=== PATIENT | male | born 1980 | race Caucasian/White ===

== ENCOUNTER 2023-08-30 05:33 | Day surgery (SDC) | payer BC, OTHER ==
[~2023-08-30 05:33] MED LIST: ACETAMINOPHEN TAB 500 MG TAB PO PRN; HEPARIN SODIUM,PORCINE 5,000 UNIT/ML 1 ML VIAL SQ PRN
[2023-08-30] MEDS ORDERED: LIDOCAINE 1% (10MG/ML) FOR IV START INTRADERMA PRN (05:45)
[2023-08-30] MEDS ORDERED: DEXAMETHASONE SOD PHOSPHATE 4 MG/ML 1 ML VIAL IV ONE (05:45)
[2023-08-30] MEDS ORDERED: LACTATED RINGERS 1,000 ML IV SCH (05:45)
[2023-08-30] MEDS ORDERED: ONDANSETRON 4 MG/2 ML VIAL IVP ONE ×2 (05:45→06:50)
[2023-08-30] MEDS ORDERED: DEXAMETHASONE SOD PHOSPHATE 4 MG/ML 1 ML VIAL IVP ONE (06:50)
[2023-08-30] MEDS ORDERED: LACTATED RINGERS 1,000 ML IV ONE ×2 (06:50→08:24)
[2023-08-30] MEDS ORDERED: HYDROmorphone 0.5 MG/0.5 ML SYRINGE IVP PRN (07:00)
[2023-08-30] MEDS ORDERED: MIDAZOLAM 2 MG/2 ML VIAL IV PRN (07:00)
[2023-08-30] MEDS ORDERED: MIDAZOLAM 2 MG/2 ML VIAL IVP ONE ×2 (07:16)
[2023-08-30] MEDS ORDERED: BUPIVACAINE (PF) 0.25% 30 ML VIAL SQ ONE ×2 (07:31→07:58)
[2023-08-30] MEDS ORDERED: fentaNYL (PF) 50 MCG/ML 2 ML AMP ONE (07:33)
[2023-08-30] MEDS ORDERED: ROPIVACAINE 5 MG/ML 30 ML VIAL ONE (07:33)
[2023-08-30] MEDS ORDERED: LIDOCAINE 1% INJ 10MG/ML (20 ML MDV) ONE (07:33)
[2023-08-30] MEDS ORDERED: HYDROmorphone (PF) 1 MG/ML ONE (07:33)
[2023-08-30] MEDS ORDERED: ROCURONIUM 10 MG/ML (5 ML VIAL) IV ONE (07:33)
[2023-08-30] MEDS ORDERED: KETOROLAC 15 MG/ML 1 ML VIAL ONE (07:33)
[2023-08-30] MEDS ORDERED: KETAMINE HCL IN 0.9 % NACL 50 MG/5 ML SYRINGE ONE (07:33)
[2023-08-30] MEDS ORDERED: GLYCOPYRROLATE 0.2 MG/ML 2 ML VIAL ONE (07:33)
[2023-08-30] MEDS ORDERED: SUCCINYLCHOLINE CHLORIDE 200 MG/10 ML VIAL IV ONE (07:33)
[2023-08-30] MEDS ORDERED: DEXAMETHASONE SOD PHOSPHATE 4 MG/ML 1 ML VIAL ONE (07:33)
[2023-08-30] MEDS ORDERED: LIDOCAINE 4% LTA KIT (4 ML) TOPICAL ONE (07:33)
[2023-08-30] MEDS ORDERED: PROPOFOL 10 MG/ML 20 ML VIAL IV ONE (07:33)
[2023-08-30] MEDS ORDERED: MIDAZOLAM 2 MG/2 ML VIAL ONE (07:33)
[2023-08-30] MEDS ORDERED: SODIUM CHLORIDE 0.9% (PF) 10 ML VIAL ONE (07:33)
[2023-08-30] MEDS ORDERED: NEOSTIGMINE 1 MG/ML 10 ML VIAL ONE (07:33)
--- NOTE | 2023-08-30 08:43 | P.OP ---
Date of Procedure: 08/30/23 Preoperative Diagnosis: Right inguinal hernia Postoperative Diagnosis: Right inguinal hernia Right cord lipoma Procedure(s) Performed: laparoscopic robotic assisted repair of right inguinal hernia Excision of right cord lipoma Anesthesia: MAC Surgeon: Nathen Rivera Pathology: other (Cord lipoma) Condition: stable Disposition: PACU Description of Procedure: The patient was placed on the operating table in the supine position. The patient received general anesthesia. The patient's abdomen was prepped and draped in usual sterile fashion. The skin was anesthetized 1% local Xylocaine at the incision sites. Using an 11 blade a skin incision was made at the umbilicus. The fascia was grasped with a Archbald and then the peritoneal cavity was entered with the Veress needle. Position of the Veress needle was confirmed with a positive drop test. After adequate insufflation a 5 mm trocar was placed into the peritoneal cavity. The Laparoscope was placed the peritoneal cavity. And a robotic 8 mm trocar was placed in the right lateral position and then another 8 mm robotic trochars placed in the left lateral position. The original 5 mm trocar was exchanged for a 8 mm trocar. The patient was placed in reverse Trendelenburg and then the patient was docked to the robot. Next the peritoneum over top of the hernia was incised and then using blunt and sharp dissection and electrocautery the hernia sac was dissected free from the floor of the inguinal canal. The hernia sac was completely reduced into the peritoneal cavity. The cord lipoma was dissected free sent pathology. And then using the Pro gis consultant mesh the hernia was repaired. The peritoneum was then sutured with 2-0V lock suture. The patient was then undocked the robot. The needle was withdrawn from the peritoneal cavity. The umbilical trocar site was closed with 0 Ethibond suture. The skin was closed interrupted 3-0 Monocryl suture. Dermabond dressing was applied. Patient was sent to recovery in stable condition.
[2023-08-30 08:48] VITALS: TEMP 96.8
[2023-08-30 09:18] VITALS: RESP 16
[2023-08-30 10:16] VITALS: BP 148/95; PULSE 56
--- NOTE | 2023-08-30 11:20 | P.ANPRN ---
Procedure Note - Anesthesia - Nerve Block Performed Bilateral Erector Spinae Single Time Out Performed: Yes Date of Procedure: 08/30/23 Procedure Start Time: :15 Procedure Stop Time: : Location of Patient: PreOp Indication: Acute Post-Operative Pain, Requested by Surgeon Sedation Type: Sedate with meaningful contact maintained Preparation: Sterile Prep Position: Prone Needle Types: Pajunk Needle Gauge: 21 Ultrasound used to visualize needle placement: Yes Ultrasound used to observe medication spread: Yes Blood Aspirated: No Pain Paresthesia on Injection Noted: No Resistance on Injection: Normal Image Stored and Saved: Yes Events: Uneventful and Well Tolerated (Ropivacaine 0.5% 15 cc plus normal saline 10 cc plus dexamethasone 4 mg given bilaterally at L1)
== END 2023-08-30 10:35 | disposition home or self-care (01) ==
LOC: OR 05:33
PROVIDERS: ATTEND Surgery
DX: K40.31 Unilateral inguinal hernia, with obstruction, without gangrene, recurrent (principal); D17.6 Benign lipomatous neoplasm of spermatic cord; J44.9 Chronic obstructive pulmonary disease, unspecified; Z79.51 Long term (current) use of inhaled steroids; Z79.899 Other long term (current) drug therapy
CPT/HCPCS: 64999; 88304; 49650; C1781; J2250; J0330; J1644; J1100; J2710; J0690; J2405; J2001; J3010; J1170 ×2; J2795; J1885; J2704; J0665